=== PATIENT | male | born 1995 | race Caucasian/White ===

== ENCOUNTER 2020-02-20 10:43 | Emergency (ER) | payer OTHER ==
[~2020-02-20] VITALS: Ht 170.2 cm; Wt 63.5 kg
[2020-02-20 10:49] VITALS: BP 114/78
--- NOTE | 2020-02-20 10:54 | NUR ---
24 YEAR OLD MALE BIBA FOR MEDICAL EXAMINATION AFTER CONSUMPTION OF 2 XANAX. PER EMS PEOPLE CALLED AMBULANCE FOR HIM BECAUSE THEY WERE WORRIED ABOUT HIM. PT IS SOMEWHAT LETHARGIC, AOX4, GCS, BREATHING EVEN AND UNLABORED, SKIN WARM AND DRY. BED IN LOWEST POSITION, LOCKED, BED RAIL UPX1. PT STATES THAT HE NORMALLY TAKES MORE XANAX AND DOES NOT KNOW WHY HE IS HERE. PT ON MONITOR, VS STABLE. PMH - DENIES ALLERGIES - NKA
--- NOTE | 2020-02-20 11:30 | NUR ---
CALLED PT MOM TO [facility] [phone]
--- NOTE | 2020-02-20 11:40 | NUR ---
PT D/C WITH VSS. PT WAS INSTRUCTED TO FOLLOW UP WITH PCP AND EDUCATED ON IN HOME CARE. PT WAS ABLE TO AMBULATE OUT OF ER. PT MOM CAME TO [facility] PT.
[2020-02-20 11:45] VITALS: BP 114/78
== END 2020-02-20 11:40 | disposition home or self-care (01) ==
LOC: MED 10:43
DX: F13.20 Sedative, hypnotic or anxiolytic dependence, uncomplicated (principal); F14.10 Cocaine abuse, uncomplicated
CPT/HCPCS: 99281; 99283

== ENCOUNTER 2020-02-22 11:53 | Emergency (ER) | payer OTHER ==
[~2020-02-22] VITALS: Ht 177.8 cm; Wt 72.6 kg
[2020-02-22 11:54] VITALS: BP 74/44
--- NOTE | 2020-02-22 11:54 | NUR ---
[facility] ALS TAKEN TO BED 5
--- NOTE | 2020-02-22 12:00 | NUR ---
24 y/o male biba from home for overdose on heroin, found by family member in bathtub, PD on scene and pt became cyanotic. Pt given 4mg Narcan IN prior to arrival. Pt responsive at this time stating "my legs hurt, help me". Denies N/V/D. Placed on bedside monitor. medhx: substance abuse
[2020-02-22] MEDS: NACL 0.9% 1,000 ML IV ONE (12:11)
[2020-02-22] MEDS: ONDANSETRON 4 MG/2 ML VIAL IVP ONE (12:14)
--- NOTE | 2020-02-22 12:15 | NUR ---
X-Ray at bedside.
--- NOTE | 2020-02-22 12:21 | NUR ---
Lab at bedside for blood draw.
[2020-02-22 12:32] LABS: BASOPHILS # (AUTO) 0.1 K/uL (0.00-0.22); BASOPHILS % (AUTO) 0.3 % (0.0-2.0); EOSINOPHILS % (AUTO) 0.1 % (0.0-4.0); HEMOGLOBIN 13.7 g/dL (12.0-18.0); LYMPHOCYTES # (AUTO) 1.5 K/uL (2.0-11.5); LYMPHOCYTES % (AUTO) 7.7 % (20.5-51.1); MEAN CORPUSCULAR HEMOGLOBIN 30 pg (27-31); MEAN CORPUSCULAR HGB CONC 33 g/dL (33-37); MEAN CORPUSCULAR VOLUME 91.5 fL (80-94); MONOCYTES # (AUTO) 0.6 K/uL (0.8-1.0); MONOCYTES % (AUTO) 3.2 % (1.7-9.3); NEUTROPHILS # (AUTO) 17.3 K/uL (1.8-7.7); NEUTROPHILS % (AUTO) 88.7 % (42.2-75.2); PLATELET COUNT (AUTO) 227 K/uL (140-450); RED BLOOD CELL COUNT(AUTO) 4.59 MIL/uL (4.20-6.10); RED CELL DISTRIBUTION WIDTH 13.7 % (11.6-13.7); WHITE BLOOD COUNT (AUTO) 19.5 K/uL (4.8-10.8)
[2020-02-22 13:00] LABS: ALBUMIN 3.9 g/dL (3.4-5.0); ANION GAP 16.2 (8-16); ASPARTATE AMINOTRANSFERASE 69 U/L (15-37); CARBON DIOXIDE 26.5 mmol/L (21-32); CHLORIDE 101 mmol/L (98-107); CREATININE 1.4 mg/dL (0.6-1.3); GFR ARICAN-AMERICAN 79 mL/min (>90); GLUCOSE 219 mg/dL (74-106); POTASSIUM 3.7 mmol/L (3.5-5.1); SODIUM SERUM 140 mmol/L (136-145); TOTAL BILIRUBIN 0.7 mg/dL (0.0-1.0); UREA NITROGEN, BLOOD 17 mg/dL (7-18)
[2020-02-22 13:01] LABS: ACETAMINOPHEN < 0.5 ug/ml (10-30); SALICYLATE < 2.8 mg/dL (2.8-20.0)
--- NOTE | 2020-02-22 13:19 | NUR ---
Pt resting in bed with eyes closed, arousable to voice. Denies pain. Remains on bedside monitor. VSS
[2020-02-22] MEDS ORDERED: cefTRIAXone 1,000 MG VIAL ONE (13:55)
[2020-02-22] MEDS: NACL 0.9% 1,500 ML IV ONE (14:10)
--- NOTE | 2020-02-22 14:31 | NUR ---
Spoke to patients mother-- Natividad Bal Call for update-- [phone] Mother states pt was in rehad for 2.5 months for heroin addiction.
--- NOTE | 2020-02-22 14:55 | NUR ---
Urine collected from patient and sent to lab.
[2020-02-22 14:57] LABS: CKMB RELATIVE INDEX 1.9 (0.0-2.5); CREATINE KINASE MB 21.9 ng/mL (0-3.6)
--- NOTE | 2020-02-22 15:09 | NUR ---
Positioned for comfort with HOB elevated. Remains on bedside monitor. VSS. Will continue to monitor
--- NOTE | 2020-02-22 16:09 | NUR ---
Covid swab collected from patient and sent to lab.
[2020-02-22 16:13] LABS: BARBITURATE, URINE NEGATIVE ng/ml (NEG <=200); BENZODIAZEPINE, URINE POSITIVE ng/mL (NEG <=200); CANNABINOID, URINE NEGATIVE ng/mL (NEG <=50); COCAINE, URINE NEGATIVE ng/mL (NEG <=300); OPIATE, URINE POSITIVE ng/mL (NEG <=2000); PHENCYCLIDINE SCREEN,URINE NEGATIVE ng/mL (NEG <=25)
[2020-02-22 16:18] LABS: APPEARANCE,URINE HAZY (CLEAR); BILIRUBIN,URINE NEGATIVE (NEGATIVE); BLOOD, URINE NEGATIVE (NEGATIVE); COLOR,URINE YELLOW (YELLOW); LEUKOCYTE ESTERASE ,URINE NEGATIVE (NEGATIVE); NITRITE, URINE NEGATIVE (NEGATIVE); UGLUCOSE 1+ (NEGATIVE)
--- NOTE | 2020-02-22 17:01 | NUR ---
Pt resting with eyes closed arousable to voice. Positioned for comfort, x 2 side rails raised, bed locked and in lowest position. Remains on bedside monitor VSS
--- NOTE | 2020-02-22 18:08 | NUR ---
Report called to SILAS Coelho at [facility].
--- NOTE | 2020-02-22 18:39 | NUR ---
Pt resting with eyes closed, visible rise and fall of the chest. Denies pain. VSS
--- NOTE | 2020-02-22 19:14 | NUR ---
Report given to Faye ROSEN. Transfer of care at this time
--- NOTE | 2020-02-22 19:18 | NUR ---
RECEIVED REPORT TO SILAS SALVADOR FOR CONTINUITY OF CARE.
[2020-02-22 19:44] VITALS: BP 125/78
--- NOTE | 2020-02-22 19:45 | NUR ---
Patient to be transferred to [facility]. Is being transferred due to CONTINUATION OF CARE. Receiving facility has accepting physician and available space. ER physician has signed transfer form. Patient or responsible green party has agreed to transfer and signed form. Patient belongings inventoried and will be sent with patient. Copy of nursing notes, lab reports, EKG, Physicians Orders and X-rays to be sent with patient. Report called to SILAS HENSON at receiving facility. [facility] ambulance service has been called for transfer.
--- NOTE | 2020-02-23 13:46 | NUR ---
CONFIRMED WITH RN END TIME OF NORMAL SALINE 1510 02/22/20
== END 2020-02-22 19:44 | disposition short-term general hospital (02) ==
LOC: MED 11:53
DX: T40.1X1A Poisoning by heroin, accidental (unintentional), initial encounter (principal); R41.82 Altered mental status, unspecified; M62.82 Rhabdomyolysis; E87.2 Acidosis
CPT/HCPCS: 36415; 71045; 80053; 80305; 81003; 82550; 82553; 83605; 85025; 87040; 87086; 87426; 93005; 96361; 96365; 96375; 99291; G0480; G0482; J0696; J2405; J7030; Q0092